=== PATIENT | female | born 1995 | race Caucasian/White ===

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

== ENCOUNTER 2017-04-06 11:21 | Emergency (ER) | payer OTHER ==
[~2017-04-06] VITALS: Ht 177.8 cm; Wt 91.0 kg
[~2017-04-06 11:21] MED LIST changes: +LOPE2TAB3 PO; +ZOFR4TAB3 SL
[2017-04-06 11:25] VITALS: BP 108/59; PULSE 78; RESP 20; TEMP 99.7; O2SAT 93
[2017-04-06 11:34] VITALS: BP 110/60; PULSE 72; RESP 16; O2SAT 98
[2017-04-06] MEDS ORDERED: SODIUM CHLOR 0.9% 1000 ML INJ 1,000 ML IV SCH (11:36)
--- NOTE | 2017-04-06 11:36 | PD ---
HPI Chief Complaint: GI Complaint Time Seen by Provider: 11:31 Travel History International Travel<30 days: No Contact w/Intl Traveler<30days: No Traveled to known affect area: No History of Present Illness HPI 22-year-old Afro-[place]aced[place] female presents the emergency department with 3 day history of nausea, vomiting, and now diarrhea. She has mild generalized abdominal discomfort. She denies fever or chills. Patient states the last time she vomited was yesterday. Patient has had 2 episodes of diarrhea this morning. Patient states no decrease in her urination. Abdominal discomfort is generalized and 3 out of 10. Patient denies . Her last period was March 23. He has no known drug allergies. Patient feels she is somewhat better this morning, but "just wanted it checked out." PFSH Past Medical History Medical History: Denies Significant Hx Diabetes: No Diminished Hearing: No Integumentary: Yes (right axilla I&D.) Immunizations Current: Yes Tetanus Vaccination: < 5 Years Influenza Vaccination: Yes ?: Not LMP: 03/23/17 : 0 Past Surgical History Surgical History: No Previous Surgery Social History Alcohol Use: No Tobacco Use: No Substance Use: No Allergies-Medications (Allergen,Severity, Reaction): Coded Allergies: No Known Allergies (Unverified , 12/20/16) Reported Meds & Prescriptions Reported Meds & Active Scripts Active Loperamide (Loperamide HCl) 2 Mg Cap 2 Mg PO DIRECTED PRN One capsule after each loose stool. Not to exceed 8 capsules per day. Zofran Odt (Ondansetron Odt) 4 Mg Tab 4 Mg SL Q8HR PRN May substitute non-ODT form. Loperamide (Loperamide HCl) 2 Mg Tab 2 Mg PO DIRECTED PRN One tablet after each loose stool. Not to exceed 8 tablets per day. Bactrim DS (Sulfamethoxazole-Trimethoprim) 800-160 Mg Tab 1 Tab PO BID Review of Systems Except as stated in HPI: all other systems reviewed are Neg General / Constitutional: No: Fever Eyes: No: Visual changes HENT: No: Headaches Cardiovascular: No: Chest Pain or Discomfort Respiratory: No: Shortness of Breath Gastrointestinal: Positive: Nausea, Vomiting (yesterday.), Diarrhea, Abdominal Pain, Loss of Appetite, No: Hematemesis, Hematochezia, Constipation, Changes in Bowel Habits, Indigestion, Dysphagia Genitourinary: No: Dysuria Musculoskeletal: No: Pain Skin: No Rash Neurologic: No: Weakness Psychiatric: No: Depression Endocrine: No: Polydipsia Hematologic/Lymphatic: No: Easy Bruising Physical Exam Narrative GENERAL: Patient appears in no acute distress is noted to be texting on her phone comfortably when I enter the room. SKIN: Warm and dry. Normal color. Normal turgor. HEAD: Atraumatic. Normocephalic. EYES: Pupils equal and round. No scleral icterus. No injection or drainage. ENT: No nasal bleeding or discharge. Mucous membranes pink and moist. Pharynx is clear. Airway is patent. NECK: Trachea midline. Supple and nontender. CARDIOVASCULAR: Regular rate and rhythm. RESPIRATORY: No accessory muscle use. Clear to auscultation. Breath sounds equal bilaterally. GASTROINTESTINAL: Abdomen soft, mild diffuse tenderness, nondistended. Bowel sounds present in all quadrants. Hepatic and splenic margins not palpable. MUSCULOSKELETAL: Extremities without clubbing, cyanosis, or edema. No obvious deformities. NEUROLOGICAL: Awake and alert. No obvious cranial nerve deficits. Motor grossly within normal limits. Five out of 5 muscle strength in the arms and legs. Normal speech. PSYCHIATRIC: Appropriate mood and affect; insight and judgment normal. Data Data Last Documented VS Vital Signs Date Time Temp Pulse Resp B/P (MAP) Pulse Ox O2 Delivery O2 Flow Rate FiO2 04/06/17 11:56 70 04/06/17 11:34 16 98 Room Air 04/06/17 11:25 99.7 Orders Orders Iv Access Insert/Monitor (04/06/17 11:36) Ecg Monitoring (04/06/17 11:36) Ondansetron Inj (Zofran Inj) (04/06/17 11:45) Sodium Chlor 0.9% 1000 Ml Inj (Ns 1000 M (04/06/17 11:36) Sodium Chloride 0.9% Flush (Ns Flush) (04/06/17 11:45) Ketorolac Inj (Toradol Inj) (04/06/17 11:45) Ed Urine Pregnancytest Poc (04/06/17 11:36) Oximetry (04/06/17 11:36) MDM Medical Decision Making Medical Screen Exam Complete: Yes Emergency Medical Condition: Yes Differential Diagnosis Nausea and vomiting. Diarrhea. Abdominal pain. Gastroenteritis. Narrative Course Patient appears medically stable at time of exam. Labs ordered including urine test. IV access is obtained and patient is given 4 mg Zofran IV as well as 30 mg Toradol IV. Patient is 1000 mL normal saline bolus. Patient will be treated with loperamide as directed, Patient also given Zofran 4 mg every 6 hours when necessary. Patient given a work note to return tomorrow. Patient can return to emergency department if symptoms worsen as needed. Diagnosis Primary Impression: Gastroenteritis Referrals: [facility] Patient Instructions: Acute Diarrhea (ED), Acute Nausea and Vomiting (ED), General Instructions Departure Forms: Work Release Enter return to work date: Apr 07, 2017 Additional Instructions: Patient will be treated with loperamide as directed, Patient also given Zofran 4 mg every 6 hours when necessary. Patient given a work note to return tomorrow. Patient can return to emergency department if symptoms worsen as needed. Scripts Loperamide (Loperamide) 2 Mg Cap 2 MG PO DIRECTED Y for DIARRHEA, #15 CAP 0 Refills One capsule after each loose stool. Not to exceed 8 capsules per day. Prov: Freddy Kate MD 04/06/17 Ondansetron Odt (Zofran Odt) 4 Mg Tab 4 MG SL Q8HR Y for Nausea/Vomiting, #15 TAB May substitute non-ODT form. Prov: Freddy Kate MD 04/06/17 Disposition: 01 DISCHARGE HOME Condition: Stable Richy Gregg Apr 06, 2017 11:36
[2017-04-06] MEDS ORDERED: ONDANSETRON HCL 4 MG/2 ML VIAL IVP ONE (11:45)
[2017-04-06] MEDS ORDERED: SODIUM CHLORIDE 0.9% FLUSH 10 ML FLUSH IV FLUSH PRN (11:45)
[2017-04-06] MEDS ORDERED: KETOROLAC TROMETHAMINE 30 MG/ML (IVP) VIAL IVP ONE (11:45)
[2017-04-06] MEDS ORDERED: LOPE2CAP PO (11:54)
[2017-04-06] MEDS ORDERED: ZOFR4TAB3 SL (11:54)
[2017-04-06 11:56] VITALS: PULSE 70
--- NOTE | 2017-04-06 11:58 | PD ---
Data Data Last Documented VS Vital Signs Date Time Temp Pulse Resp B/P (MAP) Pulse Ox O2 Delivery O2 Flow Rate FiO2 04/06/17 11:56 70 04/06/17 11:34 16 98 Room Air 04/06/17 11:25 99.7 Orders Orders Iv Access Insert/Monitor (04/06/17 11:36) Ecg Monitoring (04/06/17 11:36) Ondansetron Inj (Zofran Inj) (04/06/17 11:45) Sodium Chlor 0.9% 1000 Ml Inj (Ns 1000 M (04/06/17 11:36) Sodium Chloride 0.9% Flush (Ns Flush) (04/06/17 11:45) Ketorolac Inj (Toradol Inj) (04/06/17 11:45) Ed Urine Pregnancytest Poc (04/06/17 11:36) Oximetry (04/06/17 11:36) MDM Supervised Visit with KALIE: Yes Narrative Course The history, exam, and medical decision-making in the associated mid-level provider note were completed with my assistance. I reviewed and agree with the findings presented. I attest that I had a [id number] encounter with the patient on the same day, and personally performed and documented my assessment and findings in the medical record. *My assessment and Findings: 22 year-old woman with nausea vomiting diarrhea for a couple days. Nausea vomiting or mostly subsided. She some diarrhea today. She missed work. She doesn't know. She is a benign abdominal exam. She looks well. No clear sick contacts or suspect foods. Recommend supportive treatment. Scripts Loperamide (Loperamide) 2 Mg Cap 2 MG PO DIRECTED Y for DIARRHEA, #15 CAP 0 Refills One capsule after each loose stool. Not to exceed 8 capsules per day. Prov: Freddy Kate MD 04/06/17 Ondansetron Odt (Zofran Odt) 4 Mg Tab 4 MG SL Q8HR Y for Nausea/Vomiting, #15 TAB May substitute non-ODT form. Prov: Freddy Kate MD 04/06/17 Condition: Stable Freddy Kate MD Apr 06, 2017 11:58
== END 2017-04-06 12:48 | disposition home or self-care (01) ==
LOC: NEPC 11:21
DX: K52.9 Noninfective gastroenteritis and colitis, unspecified (principal)
CPT/HCPCS: 84703; 96374; 96375; 99284; J1885; J2405; J7030